=== PATIENT | male | born 1995 | race Caucasian/White ===

== ENCOUNTER 2022-09-11 10:46 | Emergency (ER) | payer MEDICAID ==
[2022-09-11] MEDS ORDERED: Sodium Chloride 0.9% 10 ML Syringe FLUSH PRN (11:17)
[2022-09-11 12:08] LABS: CHLORIDE,CL 102 mmol/L (98-107); SODIUM,NA 140 mmol/L (136-145)
[2022-09-11 12:17] LABS: ESTIMATED GFR 125 mL/min (>=60)
== END 2022-09-11 12:43 | disposition home or self-care (01) ==
LOC: DL.ED 10:46
DX: M79.622 Pain in left upper arm (principal)
CPT/HCPCS: 36415; 71045; 80053; 83735; 84484; 85025; 85610; 85730; 93005; 93010; 99284; 99285